=== PATIENT | female | born 1995 | race Caucasian/White ===

== ENCOUNTER 2017-09-06 20:43 | Emergency (ER) | payer BC, OTHER ==
[~2017-09-06] VITALS: Ht 157.5 cm; Wt 48.1 kg
[~2017-09-06 20:43] MED LIST: [UNRECOGNIZED DRUG - REMARK]
[2017-09-06 20:50] VITALS: BP_SYST 113
[2017-09-06 23:45] LABS: BILIRUBIN,URINE NEGATIVE (NEGATIVE); BLOOD, URINE NEGATIVE (NEGATIVE); CLARITY/URINE SL HAZY (CLEAR); COLOR,URINE YELLOW (YELLOW); GLUCOSE,URINE NEGATIVE (NEGATIVE); KETONES,URINE NEGATIVE (NEGATIVE); LEUKOCYTE ESTERASE ,URINE NEGATIVE (NEGATIVE); NITRITE, URINE NEGATIVE (NEGATIVE); PROTEIN URINE NEGATIVE (NEGATIVE); UROBILINOGEN,URINE 0.2 (0.2-1.0)
[2017-09-07 00:12] LABS: HEMATOCRIT 32.3 % (36-48); HEMOGLOBIN 10.8 g/dL (12.0-16.0); LYMPHOCYTES % (AUTO) 25.3 % (20.5-51.5); MEAN CORPUSCULAR HEMOGLOBIN 30 pg (27-31); MEAN CORPUSCULAR HGB CONC 34 % (32-36); MEAN CORPUSCULAR VOLUME 89 fL (79.0-98.0); NEUTROPHILS % (AUTO) 60.4 % (40.0-70.0); PLATELET COUNT (AUTO) 161 K/uL (130-430); RED BLOOD CELL COUNT(AUTO) 3.62 MIL/uL (4.2-6.2); RED CELL DISTRIBUTION WIDTH 13.1 % (9.0-15.0); WHITE BLOOD COUNT (AUTO) 6.3 K/uL (4.8-10.8)
[2017-09-07 00:13] LABS: BASOPHILS # (AUTO) 0.1 K/uL (0.0-0.2); BASOPHILS % (AUTO) 1.3 % (0.0-2.0); EOSINOPHILS # (AUTO) 0.4 K/uL (0.0-0.4); EOSINOPHILS % (AUTO) 6.1 % (0.0-4.0); LYMPHOCYTES # (AUTO) 1.6 K/uL (1.0-5.5); MONOCYTES # (AUTO) 0.4 K/uL (0.0-1.0); MONOCYTES % (AUTO) 6.9 % (1.7-9.3); NEUTROPHILS # (AUTO) 3.8 K/uL (1.8-7.7)
[2017-09-07 00:20] LABS: CALCIUM 9.1 mg/dL (8.4-11.0); CREATININE 0.48 mg/dL (0.55-1.30); POTASSIUM 3.6 mmol/L (3.5-5.1)
[2017-09-07 00:25] LABS: ALBUMIN 3.8 g/dL (3.4-4.8); TOTAL BILIRUBIN 0.2 mg/dL (0.0-1.0)
[2017-09-07 00:27] LABS: PROTHROMBIN TIME 9.5 SECS (9.5-12.5)
[2017-09-07 00:56] VITALS: BP_SYST 115
== END 2017-09-07 00:56 | disposition home or self-care (01) ==
LOC: SED 20:43
DX: O98.511 Other viral diseases complicating pregnancy, first trimester (principal); B34.9 Viral infection, unspecified; Z3A.09 9 weeks gestation of pregnancy
CPT/HCPCS: 36415; 80053; 81003; 81025; 82150; 83690; 85025; 85610; 99284; J7040

== ENCOUNTER 2017-11-18 16:06 | Emergency (ER) | payer BC ==
[~2017-11-18] VITALS: Ht 157.5 cm; Wt 48.1 kg
[2017-11-18 16:07] VITALS: BP_SYST 99
== END 2017-11-18 17:05 | disposition home or self-care (01) ==
LOC: SED 16:06 → SPU 16:13 → SED 16:48 → STU 16:48 → SED 17:05
DX: O9A.212 Injury, poisoning and certain other consequences of external causes complicating pregnancy, second trimester (principal); Z3A.20 20 weeks gestation of pregnancy; Z79.3 Long term (current) use of hormonal contraceptives
CPT/HCPCS: 81002-TC; 99281